=== PATIENT | male | born 1990 | race Caucasian/White ===

== ENCOUNTER 2021-03-27 14:51 | Emergency (ER) | payer OTHER, SELFPAY ==
--- NOTE | ~2021-03-27 | CT_ITS ---
EXAMINATION: CT abdomen pelvis w con DATE: 03/27/2021 19:25 INDICATION: Periumbilical abdominal pain. TECHNIQUE: Computed tomography (CT) of the abdomen and pelvis was performed with 100 mL Omnipaque 350 intravenous contrast. Automated exposure control and iterative reconstruction technique were employe d. The dose-length product was 587.14 mGy-cm. COMPARISON: None. FINDINGS: The visualized portions of the lung bases demonstrate mild atelectasis. No pleural effusion . The heart size is normal. No pericardial effusion. The liver, gallbladder, spleen, pancreas, adrena l glands, and kidneys are normal. There are changes of appendectomy. There are no dilated loops of debbie wel. There are no pathologically enlarged lymph nodes. There is no free intraperitoneal fluid. There is a small umbilical hernia containing fat. There is mild thoracolumbar spondylosis. IMPRESSION: 1. Small umbilical hernia containing fat. Reviewed, dictated and finalized at location A. [employer]
[2021-03-27 15:14] VITALS: BP 118/70; PULSE 64; RESP 20; TEMP 35.9; O2SAT 100
--- NOTE | 2021-03-27 17:59 | ED.ABDPAIN ---
HPI - Abdominal Pain General Chief Complaint: Abdominal Pain Stated Complaint: ABD pain - left side Time Seen by Provider: 03/27/21 17:48 Source: patient Mode of arrival: ambulatory Limitations: no limitations History of Present Illness HPI narrative: This is a 30-year-old male that presents to the emergency department for periumbilical abdominal pain present since this afternoon. Reports the pain has been a constant dull ache. It started radiating into the lower abdomen. Denies any associated symptoms. Denies fever, vomiting, diarrhea, dysuria, or hematuria. Related Data Home Medications Medication Instructions Recorded Confirmed terbinafine HCl mg 03/27/21 Allergies Allergy/AdvReac Type Severity Reaction Status Date / Time No Known Allergies Allergy Mild Verified 03/27/21 19:05 Review of Systems Review of Systems: CONSTITUTIONAL: Denies fever GASTROINTESTINAL: Reports abdominal pain. Denies nausea, vomiting, or diarrhea. GENITOURINARY: Denies dysuria or hematuria. All systems reviewed & are unremarkable except as noted in HPI and below PMFSH Past Medical History Medical History (Updated 03/27/21 @ 20:13 by Senia Mcelroy PA-C) History of appendicitis No active medical problems Social History Social History (Updated 03/27/21 @ 18:01 by Senia Mcelroy PA-C) Substance use: never Exam Narrative: GENERAL: Well-appearing, well-nourished, and in no acute distress. HEAD: Normocephalic, atraumatic. EYES: EOMI. CHEST: Clear to auscultation. No respiratory distress. No wheezes rales or rhonchi HEART: Regular rate and rhythm. No murmur heard. Normal peripheral pulses. ABDOMEN: Soft, nondistended, normal active bowel sounds. Tender to palpation throughout the mid to lower abdomen, without guarding. No CVA tenderness EXTREMITIES: Normal range of motion. No edema. SKIN: Warm, dry, no rash. NEURO: No focal deficits. Alert and oriented x3. PSYCH: Normal mood and affect Course Vital Signs Vital signs: Vital Signs Temperature 96.6 F L 03/27/21 15:14 Pulse Rate 64 03/27/21 15:14 Respiratory Rate 20 03/27/21 15:14 Blood Pressure 118/70 03/27/21 15:14 Pulse Oximetry 100 03/27/21 15:14 Temperature 96.6 F L 03/27/21 15:14 Pulse Rate 64 03/27/21 15:14 Respiratory Rate 20 03/27/21 15:14 Blood Pressure 118/70 03/27/21 15:14 Pulse Oximetry 100 03/27/21 15:14 MDM - Abdominal Pain MDM Narrative Medical decision making narrative: Patient presents to the emergency department for mid abdominal pain present since this afternoon. He is afebrile and nontoxic-appearing. Vitals are stable. CBC and metabolic panel without concerning findings. Lipase is normal. UA without evidence of infection. CT scan of the abdomen and pelvis shows a small umbilical hernia containing fat. Patient was updated on case findings. Will be given general surgery for follow-up. He is stable and felt appropriate for further outpatient evaluation. He was given warnings to return to the ER Lab Data Attestation: I reviewed the patient's lab results. Result diagrams: 03/27/21 18:27 03/27/21 18:27 Labs: Lab Results 03/27/21 03/27/21 03/27/21 Range/Units 18:27 18:27 18:59 WBC 6.3 (4.5-10.0) K/mm3 RBC 5.00 (4.6-6.20) M/mm3 Hgb 15.1 (14.0-18.0) g/dL Hct 43.5 (42.0-52.0) % MCV 87.0 (80-100) fl MCH 30.2 (26-34) pg MCHC 34.7 (32-36) g/dl RDW 12.9 (11.5-14.5) % Plt Count 166 (150-375) k/mm3 MPV 10.2 (7.4-10.4) fl Immature Gran % (Auto) 0.2 (0-0.5) % Neut % (Auto) 55.6 (45.5-73.1) % Lymph % (Auto) 32.6 (18.3-44.2) % [place] % (Auto) 6.8 (2.6-8.5) % Eos % (Auto) 4.3 (0-4.4) % Baso % (Auto) 0.5 (0.2-1.2) % Lymph # (Auto) 2.06 (0.9-3.2) K/mm3 [place] # (Auto) 0.4 (0.1-0.6) K/mm3 Eos # (Auto) 0.3 (0-0.3) K/mm3 Baso # (Auto) 0.0 (0.0-0.1) K/mm3 Abs Immat Gran (auto) 0.01 (0.00-
[2021-03-27 18:34] LABS: Basophils Percent Auto 0.5 % (0.2-1.2); Eosinophils Absolute Auto 0.3 K/mm3 (0-0.3); Eosinophils Percent Auto 4.3 % (0-4.4); Hematocrit 43.5 % (42.0-52.0); Hemoglobin 15.1 g/dL (14.0-18.0); Immature Granulocyte Absolute 0.01 K/mm3 (0.00-0.031); Immature Granulocyte Percent A 0.2 % (0-0.5); Lymphocytes Absolute Auto 2.06 K/mm3 (0.9-3.2); Lymphocytes Percent Auto 32.6 % (18.3-44.2); Mean Corpuscular HGB Conc 34.7 g/dl (32-36); Mean Corpuscular Hemoglobin 30.2 pg (26-34); Mean Platelet Volume 10.2 fl (7.4-10.4); Monocytes Absolute Auto 0.4 K/mm3 (0.1-0.6); Monocytes Percent Auto 6.8 % (2.6-8.5); Neutrophils Absolute Auto 3.5 K/mm3 (1.3-6.7); Neutrophils Percent Auto 55.6 % (45.5-73.1); Platelet Count Result 166 k/mm3 (150-375); Red Cell Distribution Width 12.9 % (11.5-14.5); White Blood Count 6.3 K/mm3 (4.5-10.0)
[2021-03-27 18:46] LABS: Alanine Aminotransferase 45 U/L (4-50); Albumin Level 4.2 g/dL (3.5-5.1); Alkaline Phosphatase 46 U/L (38-126); Anion Gap 5 mmol/L (8-16); Aspartate Amino Transferase 29 U/L (17-59); Bilirubin,Total 0.5 mg/dL (0.2-1.3); Blood Urea Nitrogen 15 mg/dL (9-20); Calcium 9.4 mg/dL (8.4-10.2); Carbon Dioxide 30 mmol/L (22-30); Chloride 105 mmol/L (98-107); Estimated CRCL calculation 98 ml/min; Estimated Glomerular Filt Rate > 60; Glucose 93 mg/dL (65-110); Lipase 78 U/L (23-300); Potassium 4.2 mmol/L (3.4-5.0); Sodium 140 mmol/L (137-145)
[2021-03-27 19:07] LABS: Add Urine Microscopic? NO; Appearance Urine Clear (Clear); Bilirubin Urine Negative (Negative); Blood Urine Negative (Negative); Color Urine Yellow (Yellow); Glucose Urine UA Negative (Negative); Ketones Urine Negative (Negative); Leukocyte Esterase Ur Negative LEU/UL (Negative); Nitrate Urine Negative (Negative); Protein Urine Negative (Negative); Specific Grav Ur 1.009 (1.001-1.035); Urobilinogen Urine Negative mg/dL (<2.0)
[2021-03-27] MEDS: ONDANSETRON INJ 4 MG/2 ML VIAL IV PUSH (19:07)
[2021-03-27] MEDS: MORPHINE SULFATE (*CRX) 4 MG/ML INJ IV PUSH (19:07)
== END 2021-03-27 20:50 | disposition home or self-care (01) ==
LOC: ANHED 20:35
PROVIDERS: Physician Assistant; Emergency Provider Emergency Medicine; PCP Nurse Practitioner Family
DX: K42.9 Umbilical hernia without obstruction or gangrene (principal)
CPT/HCPCS: 36415; 74177; 80053; 81003; 83690; 85025; 96361; 96374; 96375; 99284; J0131; J2270; J2405; Q9967

== ENCOUNTER 2021-04-07 14:31 | Outpatient (CLI) | payer OTHER, SELFPAY | END 2021-04-07 14:32 | disposition home or self-care (01) | LOC: ANHSURGERY 14:34 | PROVIDERS: PCP Nurse Practitioner Family; Visit Provider Surgery | DX: Z01.812 Encounter for preprocedural laboratory examination (principal); K43.2 Incisional hernia without obstruction or gangrene | CPT/HCPCS: 36415; 86850; 86900; 86901 ==

== ENCOUNTER 2021-04-09 01:32 | Day surgery (SDC) | payer OTHER, SELFPAY ==
[2021-04-07 09:38] VITALS: BMI 29.4
--- NOTE | 2021-04-07 09:47 | PC.NURSE ---
Report to the Outpatient Waiting Room, entrance under the green pavilion located off [facility], at time __11:30AM on date _04/09/21 . OR Time: __1:30PM . - You and your visitor will be asked a series of questions to screen for COVID 19 for your protection. - A mask is required within the hospital. - Only one visitor is allowed at this time. Patient visitors will be guided where to wait when not with patient. Preoperative COVID Testing Requirements: No COVID Test needed if: (proof is required; if not received patient will have Rapid Test prior to entry) - Patient has received COVID Vaccine at least 14 days prior to procedure date or - Patient has positive COVID test result within last 90 days of surgery date. COVID Test needed if above criteria is not met If not COVID vaccinated a COVID test must be conducted within 72 hours of surgery and patient is asked to isolate self from time of testing until procedure. You will go to the [facility] for your COVID testing. The [facility] site is located at the corner of [address] [facility]. You will only be called if COVID results are positive and your surgeon may reschedule your elective surgery date. Patients may have clear liquids (water, carbonated beverages, clear teas, apple juice) until 3 hours prior to surgery with a maximum of 20 ounces. - No food from midnight until time of surgery - Infants may have breast milk until 4 hours before surgery, infant formula 6 hours prior to surgery. - Children will be allowed to drink immediately following surgery. If applicable, please bring a bottle or sippy cup to assist with drinking. Juice, water, soda, and popsicles are readily available. For infants on formula, please bring formula the day of surgery. Pacifiers are allowed. Take the following medications with a SIP of water the morning of surgery: __HYDROCODONE NEEDED Medications to discontinue per physician NONE Date to take last dose Please no make-up, nail greek, hairspray, perfume, deodorant, or body powder the day of surgery. No jewelry (including any body piercings) or valuables the day of surgery, leave them at home. Please take a shower or bath the night before, or the morning of, surgery with an antibacterial soap. Wear comfortable, loose fitting clothing. Children are encouraged to wear pajamas. - Jewelry must be removed prior to entering the operating room. Rings and piercings that are not removed may be cut off. - The hospital will not accept responsibility for valuables. - Please leave all valuables, including medications, at home the day of surgery. If you are going home after surgery, a licensed cat driver must drive you home. - NO public transportation without another adult. - We recommend that an adult stay with you for 24 hours following discharge. - We also recommend that you do not drive, make important decision, drink alcoholic beverages, or take any drugs that were not prescribed by your health care provider for at least 24 hours after your discharge time. For Pediatric surgeries, we recommend two adults accompany the child home (only one inside the building at this time). Follow any additional instructions given to you from your surgeon. Telephone instructions given to __PATIENT and asked if any additional questions and then verbalized understanding. Patient advised to call surgeon office or pre surgery nurse liaison [phone] if any additional questions.
[2021-04-09] VITALS (10 sets, daily range): BP systolic 95–125; BP diastolic 55–76; PULSE 52–64; RESP 12–20; TEMP 36.4–36.8; O2SAT 97–100
[2021-04-09] MEDS: LACTATED RINGERS 1,000 ML 30 ML IV CONT ×2 (10:40→13:21)
--- NOTE | 2021-04-09 10:45 | WPDANESEPPF ---
Anes - Initial Pre Proc Eval Procedure: Operation Date: 04/09/21 12:00 Proposed Procedures p Incisional Hernia Repair with Mesh - Alonso Jean DO Date/Time: 04/09/21 10:45 Surgeon: Alonso Jean DO Pre Op Diagnosis: incisional hernia Patient Data Age: 30 Gender: M Height: 1.78 m Weight: 93 kg Allergies Allergy/AdvReac Type Severity Reaction Status Date / Time No Known Allergies Allergy Mild Verified 04/09/21 10:37 Home Medications Medication Instructions Recorded Confirmed Type hydrocodone 5 mg-acetaminophen 325 1 tablet PO Q4H PRN #15 tablet 04/03/21 04/09/21 Rx mg tablet Patient hx anesthesia problems: none Family hx anesthesia problems: none Results Review: All pre-operative results and documents have been reviewed as part of the pre-operative evaluation. [facility] Past Medical History Medical History History of appendicitis No active medical problems Surgical History Surgical History History of appendectomy History of tonsillectomy and adenoidectomy Family History Family History Father Diabetes mellitus Social History Social History Smoking status: Current every day smoker Tobacco type: cigarettes Additional smoking assessment comments: SMOKES 2 CIG/WEEK CURRENTLY, HX VAPING REGULARLY X 2 YEARS Alcohol intake: current Drinks per week: 1 Substance use: never Living arrangements: with family Additional living arrangements comments: AND DAUGHTER Additional occupation/education comments: [employer] [facility] care concerns: No Anes - Eval Final PreProcedure Day of Procedure 04/09/21 10:45 Patient weight: overweight Heart: regular rate and rhythm Lungs: clear to auscultation Airway: Mallampati scale class II Neurological: alert and oriented Last oral intake: >/= 8 hours ASA classification: II Emergent: no Anesthetic plan: proceed Anesthesia type and monitoring: general ETT and standard monitoring Results Review: All pre-operative results and documents have been reviewed as part of the pre-operative evaluation. Informed Consent: The patient's anesthetic plan and its attendant risks and benefits were discussed with the patient/family/POA. Questions were solicited and answers provided to the satisfaction of the patient/family/POA.
[2021-04-09] MEDS: ACETAMINOPHEN 500 MG TABLET 1000 MG PO (11:07)
[2021-04-09] MEDS: KETOROLAC 15 MG/ML VIAL (*BKC) IV PUSH (11:09)
--- NOTE | 2021-04-09 12:06 | WPDHPUPDATE1 ---
History and Physical Update Update Date/Time: 04/09/21 12:06 History and Physical has been reviewed, including an updated exam of the patient. There are NO changes in the patient's condition. Risks, benefits, and alternatives have been discussed and questions answered. Patient agrees to proceed with procedure.
[2021-04-09] MEDS: ceFAZolin 2 GM/D5W 50 ML 2 GM/50 ML BAG IVPB (12:24)
[2021-04-09] MEDS: BUPIVACAINE HCL 0.5% PF 30 ML VIAL INFILTRATE (12:43)
--- NOTE | 2021-04-09 13:20 | W.PM.PROC2 ---
Procedure Note - Detailed Date of Procedure 04/09/21 Pre-op Diagnosis incisional hernia Post-op Diagnosis same Procedure Performed Open incisional hernia repair with 4.[address] ventral patch Surgeon Alonso Jean, DO Anesthesia general and local (0.5% bupivacaine) Indications This is a 30-year-old man who presented with periumbilical pain over the past 3 weeks. He went to the emergency department on 03/27/[address] showed evidence of a small fat containing umbilical hernia. He does have history of a laparoscopic appendectomy where an incision was made in this region. He was found to have a small incisional hernia at his umbilicus. Discussions were made with the patient about treatment options and decision was made to proceed with open incisional hernia repair with possible mesh. Findings Open incisional hernia repair was performed. The patient was found to have a 1 cm incisional hernia at the inferior portion of the umbilicus. Decision was made to repair this with a 4.[address] mesh. The hernia sac was excised and discarded and a preperitoneal pocket was created for mesh placement. The mesh was then placed within this preperitoneal pocket and then the fascia was closed over the mesh using 0 Ethibond [id number] sutures. Description of Procedure Procedure as well as risks, benefits, and alternatives were discussed with the patient. Written consent was obtained and placed in chart prior to procedure. Patient was brought back to surgical suite. He was placed supine on operating table. He was then intubated by Anesthesia Department. His abdomen was prepped and draped in sterile fashion using chlorhexidine prep. 0.5% bupivacaine was infiltrated locally around the operative area. A 3 cm curvilinear incision was made just inferior to the umbilicus using a 15 blade scalpel. Electrocautery was used for hemostasis and for dissection down through the subcutaneous fat. Hernia sac was encountered and this was carefully freed up from surrounding subcutaneous fat using electrocautery. The hernia sac was freed up all the way down to the level of the fascia, and then it was transected using electrocautery. The hernia sac was excised and discarded. The umbilical stalk was then lifted off of the fascia with electrocautery. The hernia defect was then measured. This was measuring approximately 10 mm. The decision was made to use a 4.[address] ventral patch. The peritoneum was cleared under the fascia circumferentially around the hernia using blunt dissection and electrocautery. Once a wide enough pocket was created for the mesh, the mesh was then placed within this preperitoneal pocket and laid out flat centered on the hernia defect. The mesh appeared to be sitting in proper position. The mesh was then secured with the fascial closure using 0 Ethibond [id number]-hs-cytwg sutures. The mesh straps were incorporated into the fascial closure as the rakctw-mz-wmdkx sutures were placed. A total of 3 jiejvm-sk-ofbbz sutures were placed in a vertical fashion to approximate the fascia and midline. The repair was inspected and appeared secure. 0.5% bupivacaine was infiltrated around the fascia and subcutaneous space. The umbilical stalk was then reapproximated to the fascia using a 3 0 Vicryl simple interrupted suture. The deep dermis was reapproximated using 3 0 Vicryl simple interrupted sutures, and then the skin was approximated using 4 Monocryl running subcuticular suture. Exofin glue was then applied on top. The patient was then awakened from anesthesia, extubated, and transferred to recovery. Implants 4.[address] ventral patch Estimated Blood Loss 5 Complications No immediate complications Condition stable Disposition same day
[2021-04-09] MEDS: oxyCODONE HCL (*CRX) 5 MG TAB IR PO (14:55)
== END 2021-04-09 15:18 | disposition home or self-care (01) ==
PROVIDERS: PCP Nurse Practitioner Family; Visit Provider Surgery
PROC: 0WQF0ZZ Repair Abdominal Wall, Open Approach (ICD-10-PCS; CPT 49560; principal; 2021-04-09 12:00)
DX: K43.2 Incisional hernia without obstruction or gangrene (principal); F17.210 Nicotine dependence, cigarettes, uncomplicated
CPT/HCPCS: 49560; 49568; A9270; J0690; J1100; J1885; J2250; J2405; J2704; J3010; J7120

== ENCOUNTER 2021-04-25 15:27 | Emergency (ER) | payer OTHER, SELFPAY ==
--- NOTE | 2021-04-25 15:29 | ED.URI ---
HPI - URI/Sore Throat General Chief Complaint: Upper Respiratory Infection Stated Complaint: Cough Time Seen by Provider: 04/25/21 15:30 Source: patient and RN notes reviewed History of Present Illness HPI Narrative: Patient is a 30-year-old male who presents the urgent care with complaints of right-sided sinus pressure, postnasal drainage, intermittent wheezing and harsh cough. Patient states that he has been taking Mucinex D and an antihistamine [id number] for symptom relief. Patient also reports of using Tylenol for his headache which did improve in symptoms. Patient has been Covid vaccinated and denies of any recent exposures. No other acute complaints. No acute distress noted. Patient read the plan of care. Some parts of this dictation were generated by voice recognition software and may contain typographical and/or grammatical inaccuracies. Related Data Allergies Allergy/AdvReac Type Severity Reaction Status Date / Time No Known Allergies Allergy Mild Verified 04/25/21 15:41 Review of Systems Review of Systems: CONSTITUTIONAL: Denies fever, chills, or sweats. EYES: Denies visual changes, redness, or discharge. Reports of sinus pressure to the right eye ENT: Denies rhinorrhea, congestion, sore throat, or otalgia. CARDIOVASCULAR: Denies chest pain, palpitations, or edema. RESPIRATORY: Reports of cough without dyspnea and intermittent wheezing GASTROINTESTINAL: Denies abdominal pain, nausea, vomiting, or diarrhea. GENITOURINARY: Denies dysuria or hematuria. SKIN: Denies rash or itching. MUSCULOSKELETAL: Denies back pain, joint pain. Reports of body aches NEUROLOGIC: Reports of headache All other systems reviewed are negative, except as documented in HPI. [facility] Past Medical History Medical History History of appendicitis No active medical problems Surgical History Surgical History History of appendectomy History of tonsillectomy and adenoidectomy Family History Family History Father Diabetes mellitus Social History Social History Smoking status: Current every day smoker Tobacco type: cigarettes Additional smoking assessment comments: SMOKES 2 CIG/WEEK CURRENTLY, HX VAPING REGULARLY X 2 YEARS Alcohol intake: current Drinks per week: 1 Substance use: never Additional living arrangements comments: AND DAUGHTER Additional occupation/education comments: [employer] Spiritual care concerns: No Comments At the time of my signature, I reviewed and agree with the nursing past medical, surgical, social, and family history. There is no relevant family history pertinent to the patient complaint. Exam Narrative: GENERAL: This is a well-nourished, well-developed patient, in no apparent distress. HEAD: normocephalic, atraumatic. EYES: PERRL. Sclera clear/white. Vision is grossly intact. EARS: External ears normal, auditory canals clear and without drainage, TMs normal without perforation. Hearing grossly intact. NOSE: External nose normal with no obvious nasal discharge, nares without redness, no rhinorrhea. THROAT: Mucous membranes moist, posterior pharynx clear. Moderate postnasal drainage NECK: Neck supple CARDIOVASCULAR: Regular rate and rhythm without murmurs, gallops, or rubs. RESPIRATORY: Expiratory wheezes throughout with mild notable cough on exam SKIN: warm, intact with no suspicious lesions or rash, good texture and turgor. NEURO: awake, alert, and oriented to person, place and time. There were no obvious focal neurologic abnormalities. EXTREMITIES: No clubbing, cyanosis, or edema. Course Vital Signs Vital signs: Vital Signs Temperature 98.9 F 04/25/21 15:41 Pulse Rate 94 04/25/21 15:41 Respiratory Rate 20 04/25/21 15:41 Blood Pres
[2021-04-25 15:41] VITALS: BP 114/71; PULSE 94; RESP 20; TEMP 37.2; O2SAT 99
== END 2021-04-25 16:18 | disposition home or self-care (01) ==
PROVIDERS: Emergency Provider Nurse Practitioner Family; PCP Nurse Practitioner Family
DX: J40 Bronchitis, not specified as acute or chronic (principal); F17.200 Nicotine dependence, unspecified, uncomplicated
CPT/HCPCS: 99213; G0463

== ENCOUNTER 2021-11-28 22:32 | Emergency (ER) | payer OTHER, SELFPAY ==
--- NOTE | ~2021-11-28 | XR_ITS ---
EXAMINATION: XR chest 2V Exam Date/Time: 11/29/2021 0:25 CDT HISTORY: cough, fever Comparison: None available. RESULT: Lines, tubes, and devices: None. Lungs and pleura: Clear. Cardiomediastinal silhouette: Normal. Other: No acute osseous or upper abdominal finding. IMPRESSION: No acute cardiopulmonary process. Reviewed, dictated and finalized at location K.
[2021-11-28 22:41] VITALS: BP 103/68; PULSE 90; RESP 18; TEMP 36.6; O2SAT 96
[2021-11-28 23:28] LABS: SARS-CoV-2 RNA PCR Negative
--- NOTE | 2021-11-29 00:30 | ED.URI ---
HPI - URI/Sore Throat General Chief Complaint: Upper Respiratory Infection Stated Complaint: sore throat,headache, fever Time Seen by Provider: 11/28/21 22:40 History of Present Illness HPI Narrative: 31-year-old male presents the emergency room complaints of fever, shortness of breath, productive cough body aches chills. Patient states symptoms began earlier tonight. Patient states he took a DayQuil earlier today for his fever. States fevers T-max of 103.5. Related Data Allergies Allergy/AdvReac Type Severity Reaction Status Date / Time No Known Allergies Allergy Mild Verified 05/05/21 14:10 Review of Systems Review of Systems: CONSTITUTIONAL: Reports fever EYES: Denies visual changes, redness, or discharge. ENT: Denies rhinorrhea, congestion, sore throat, or otalgia. CARDIOVASCULAR: Denies chest pain, palpitations, or edema. RESPIRATORY: Reports cough or dyspnea. GASTROINTESTINAL: Denies abdominal pain, nausea, vomiting, or diarrhea. GENITOURINARY: Denies dysuria or hematuria. SKIN: Denies rash or itching. MUSCULOSKELETAL: Denies back pain, joint pain, or myalgia. NEUROLOGIC: Denies headache, numbness, dizziness, or weakness. PSYCHIATRIC: Denies anxiety or depression. [facility] Past Medical History Medical History History of appendicitis No active medical problems Surgical History Surgical History History of appendectomy History of incisional hernia repair W/ MESH 04/09/21 History of tonsillectomy and adenoidectomy Family History Family History Father Diabetes mellitus Social History Social History Smoking status: Current every day smoker Tobacco type: cigarettes Additional smoking assessment comments: SMOKES 2 CIG/WEEK CURRENTLY, HX VAPING REGULARLY X 2 YEARS Alcohol intake: current Drinks per week: 1 Substance use: never Additional living arrangements comments: AND DAUGHTER Additional occupation/education comments: [employer] Spiritual care concerns: No Exam Narrative: GENERAL: Ill-appearing, well-nourished, no physical limitations, and in no acute distress. HEAD: Normocephalic, atraumatic. EYES: Conjunctivae normal, PERRLA and EOMI. ENT: External nose normal, Nares clear, no rhinorrhea or epistaxis. Mucous membranes moist. Oropharynx without tonsillar hypertrophy exudate or other lesions. External ears normal, bilateral TMs normal bilaterally CHEST: Clear to auscultation. No respiratory distress. No wheezes rales or rhonchi. HEART: Regular rate and rhythm. No murmur heard. Normal peripheral pulses. EXTREMITIES: Normal range of motion. No edema. No clubbing or cyanosis SKIN: Warm, dry, no rash. No noted wounds NEURO: No focal deficits. Alert and oriented x3. MAEW. CN's II-XI intact bilaterally, normal gait PSYCH: Cooperative. Normal mood and affect. Course Vital Signs Vital signs: Vital Signs Temperature 36.6 C 11/28/21 22:41 Pulse Rate 90 11/28/21 22:41 Respiratory Rate 18 11/28/21 22:41 Blood Pressure 103/68 11/28/21 22:41 Pulse Oximetry 96 11/28/21 22:41 Oxygen Delivery Room Air 11/28/21 22:41 Temperature 36.6 C 11/28/21 22:41 Pulse Rate 90 11/28/21 22:41 Respiratory Rate 18 11/28/21 22:41 Blood Pressure 103/68 11/28/21 22:41 Pulse Oximetry 96 11/28/21 22:41 Oxygen Delivery Room Air 11/28/21 22:41 MDM - URI/Sore Throat Lab Data Labs: Lab Results 11/28/21 Range/Units 22:47 SARS-CoV-2 RNA (RT-PCR) Negative Imaging Data Radiologist's impression: CXR: retrocardiac infiltrate Discharge Plan Discharge Clinical Impression: Pneumonia Patient Disposition: Home, Self-Care Condition: Stable Instructions: Antibiotic Form, Pneumonia (ED) Additional Instructions: Take T
[2021-11-29] MEDS: DOXYCYCLINE HYCLATE 100 MG TABLET PO (01:27)
== END 2021-11-29 01:30 | disposition home or self-care (01) ==
PROVIDERS: Emergency Provider Nurse Practitioner Family; PCP Emergency Medicine
DX: J18.9 Pneumonia, unspecified organism (principal); Z20.822 Contact with and (suspected) exposure to COVID-19; F17.210 Nicotine dependence, cigarettes, uncomplicated; F17.290 Nicotine dependence, other tobacco product, uncomplicated
CPT/HCPCS: 71046; 99283; A9270; C9803; U0003; U0005

== ENCOUNTER 2022-06-18 12:52 | Emergency (ER) | payer OTHER, SELFPAY ==
--- NOTE | ~2022-06-18 | XR_ITS ---
XR knee LT 3V 06/18/2022 13:13 INDICATION: Left knee pain PROCEDURE: 3 views left knee COMPARISON: 09/04/2004 FINDINGS: Fracture, dislocation or subluxation is not identified. The soft tissues appear within norm al limits. No foreign bodies are identified. IMPRESSION: 1: NO ACUTE BONE OR JOINT ABNORMALITY IDENTIFIED. Reviewed, dictated and finalized at location [facility]
[2022-06-18 13:04] VITALS: BP 127/78; PULSE 89; RESP 16; TEMP 36.8; O2SAT 99
--- NOTE | 2022-06-18 13:06 | ED.LOWEXIN ---
HPI - Extremity Injury (Lower) General Chief Complaint: Extremity Injury, Lower Stated Complaint: lt knee injury Time Seen by Provider: 06/18/22 13:12 Source: patient Mode of arrival: ambulatory Limitations: no limitations History of Present Illness HPI Narrative: 31 y/o male presented for c/o left knee pain. States about 1-2 weeks ago he fell when he missed the last step, landing on the left knee. After the injury he applied ice and heat, with improvement in pain. However yesterday the pain returned, and he reports new bruising appeared. Denies new injury or overuse. States pain is 5/10 at rest, up to 8/10 with ambulating. Has not taken anything for pain. He is able to bend and straighten the leg but reports pain with movement. Denies numbness, tingling or weakness of the leg. Related Data Allergies Allergy/AdvReac Type Severity Reaction Status Date / Time No Known Allergies Allergy Mild Verified 06/18/22 13:08 Review of Systems Review of Systems: CONSTITUTIONAL: Denies body aches, fever, chills CARDIOVASCULAR: Denies chest pain, palpitations, or edema. RESPIRATORY: Denies cough or dyspnea. GASTROINTESTINAL: Denies abdominal pain, nausea, vomiting, or diarrhea. SKIN: Denies rash, itching, or wounds. MUSCULOSKELETAL: per HPI NEUROLOGIC: Denies headache, numbness, tingling, or weakness. All systems reviewed & are unremarkable except as noted in HPI and below PMFSH Past Medical History Medical History History of appendicitis No active medical problems Surgical History Surgical History History of appendectomy History of incisional hernia repair W/ MESH 04/09/21 History of tonsillectomy and adenoidectomy Family History Family History Father Diabetes mellitus Social History Social History Smoking status: Current every day smoker Tobacco type: cigarettes Additional smoking assessment comments: SMOKES 2 CIG/WEEK CURRENTLY, HX VAPING REGULARLY X 2 YEARS Alcohol intake: current Drinks per week: 1 Substance use: never Living arrangements: with family Additional living arrangements comments: AND DAUGHTER Occupation/Education: occupation Additional occupation/education comments: [employer] care concerns: No Comments At time of signature, I have reviewed and agree with nursing past medical, surgical, social and family history unless otherwise noted. Please see nursing chart for further information. There is no relevant family history pertinent to the presenting complaint Exam Narrative: GENERAL: Well-appearing CHEST: Speaks in full sentences. No respiratory distress. HEART: Regular rate and rhythm. Normal and equal peripheral pulses. EXTREMITIES: Bruising to medial/proximal aspect of left knee. Tender to palpation to all aspects. Reported increased pain to medial aspect with internal rotation of foot. LLE has normal strength and sensation, normal range of motion with flexion/extension/rotation, but endorses knee pain with movement. No swelling. No open wounds or obvious deformity; pulse palpable and equal bilaterally, skin warm, dry, pink. Capillary refill less than 3 seconds. Gait slow/steady. SKIN: Warm, dry, no rash. NEURO: Alert and oriented x3. PSYCH: Normal mood and affect Course Course Emergency Course: Patient is aware of diagnosis, understands and agrees to treatment plan. Anticipatory guidance given. Patient agrees to follow-up as directed and is aware of reasons to seek care at the emergency department. Portions of this record may have been created with voice recognition software Level of Care: Express Care Visit Vital Signs Vital signs: Vital Signs Temperature 98.2 F 06/18/22 13:04 Pulse Rate 89 06/18/22 13:04 Respiratory Ra
== END 2022-06-18 13:39 | disposition home or self-care (01) ==
PROVIDERS: Emergency Provider Nurse Practitioner Family; PCP Emergency Medicine
DX: M25.562 Pain in left knee (principal); Z72.0 Tobacco use
CPT/HCPCS: 73562; 99213; G0463